=== PATIENT | female | born 1950 | race African-American/Black ===

== ENCOUNTER 2017-03-01 22:39 | Emergency (ER) | payer MEDICARE, MEDICAID ==
[~2017-03-01] VITALS: Ht 167.6 cm; Wt 79.4 kg
[~2017-03-01 22:39] MED LIST: ALBUTEROL SULF8.5 GM INH; AUGMENTIN 875-1 EAC1 ORAL; CARAFATE SUSP UD1 G1 ORAL; DIOVAN40 MG PO; IBUPROFEN600 MG ORAL; MECLIZINE HCL25 MG ORAL; ONDANSETRON ODT4 MG ORAL; PREDNISONE20 MG PO; ROBITUSSIN DM T10 ML PO; ROBITUSSIN DM5 ML PO
[2017-03-01 22:50] VITALS: BP 144/91
--- NOTE | 2017-03-01 23:07 | Emergency Room Report ---
History of Present Illness General Chief Complaint: Dizziness Source: Patient Present Illness HPI This is a 66-year-old female with history hypertension. She presents with chief complaint of dizziness for the last 3 days. His been on off. [place] weak. Denies any fever chills denies any nausea vomiting. She walked in here without any difficulty. She hasn't eaten as much because she was concerned of the food that she ate. She worried about GMO, organic food, corn, soy etc. worse with exertion. Better with rest. Denies any other complaint. No focal deficit. No slurred speech. Similar symptom last year. Allergies: Coded Allergies: No Known Allergies (Unverified , 11/06/12) Patient History Past Medical History: see triage record, old chart reviewed, HTN Past Surgical History: other Pertinent Family History: none Social History: Denies: smoking Now: No Immunizations: other Reviewed Nursing Documentation: PMH: Agreed, PSxH: Agreed Nursing Documentation-PMH Hx Hypertension: Yes Review of Systems Eye: Denies: blurred vision, eye pain ENT: Denies: ear pain, nose congestion, throat swelling Respiratory: Denies: cough, shortness of breath Cardiovascular: Denies: chest pain, palpitations Gastrointestinal: Denies: abdominal pain, diarrhea, nausea, vomiting Musculoskeletal: Denies: back pain, joint pain Skin: Denies: rash Neurological: Reports: dizziness, Denies: headache, numbness Endocrine: Denies: increased thirst, increased urine Hematologic/Lymphatic: Denies: easy bruising All Other Systems: negative except mentioned in HPI Physical Exam Vital Signs Date Time Temp Pulse Resp B/P Pulse Ox O2 Delivery O2 Flow Rate FiO2 03/01/17 22:47 97.9 81 16 144/91 96 Room Air vitals unremarkable Sp02 EP Interpretation: reviewed, normal General Appearance: well appearing, no apparent distress, alert Head: normocephalic, atraumatic Eyes: bilateral eye EOMI, bilateral eye PERRL ENT: hearing grossly normal, normal pharynx Neck: full range of motion, supple, no meningismus Respiratory: chest non-tender, lungs clear, normal breath sounds Cardiovascular #1: regular rate, rhythm, no murmur Gastrointestinal: normal bowel sounds, non tender, no mass, no organomegaly, no bruit, non-distended Musculoskeletal: back normal, gait/station normal, normal range of motion Psychiatric: mood/affect normal Skin: warm/dry Medical Decision Making Diagnostic Impression: Primary Impression: Dizziness Additional Impression: UTI (urinary tract infection) Qualified Codes: N30.00 - Acute cystitis without hematuria ER Course Patient with dizziness. This may be secondary to dehydration. She's otherwise stable. She is walking without difficulty. May have a mild urinary tract infection. We'll go ahead and treat. No evidence of renal failure, sepsis, pneumonia, ACS to name a few. Better now. Lab Results Impression labs normal Last Vital Signs Date Time Temp Pulse Resp B/P Pulse Ox O2 Delivery O2 Flow Rate FiO2 03/01/17 22:47 97.9 81 16 144/91 96 Room Air Status: improved Disposition: HOME, SELF-CARE Condition: Stable Scripts Nitrofurantoin Monohyd/M-Cryst (Nitrofurantoin Hamilton-Mcr 100 mg) 100 Mg Capsule 100 MG ORAL Q12H, #14 CAP Prov: RADHA ARZOLA M.D. 03/02/17 Referrals: NON PHYSICIAN (PCP) Patient Instructions: Dizziness Additional Instructions: Followup with your DrMartin in 7 days. Eat and drink normally. Return if worse. RADHA ARZOLA M.D. Mar 01, 2017 23:07
[2017-03-01 23:30] LABS: BASOPHILS % (AUTO) 1.5 % (0.0-2.0); EOSINOPHILS % (AUTO) 0.6 % (0.0-3.0); LYMPHOCYTES % (AUTO) 44.5 % (20.0-45.0); MEAN CORPUSCULAR HEMOGLOBIN 30.3 PG (27.0-31.0); MEAN CORPUSCULAR HGB CONC 33.4 G/DL (32.0-36.0); MEAN CORPUSCULAR VOLUME 91 FL (80-99); MEAN PLATELET VOLUME 5.7 FL (6.5-10.1); MONOCYTES % (AUTO) 6.3 % (1.0-10.0); NEUTROPHILS % (AUTO) 47.1 % (45.0-75.0); PLATELET COUNT 274 K/UL (150-450); RED BLOOD COUNT 4.55 M/UL (4.20-5.40); RED CELL DISTRIBUTION WIDTH 12.2 % (11.6-14.8); WHITE BLOOD COUNT 7.6 K/UL (4.8-10.8)
[2017-03-01 23:32] LABS: APPEARANCE,URINE CLEAR; KETONES,URINE 2+ (NEGATIVE); LEUKOCYTE ESTERASE ,URINE 2+ (NEGATIVE); NITRITE,URINE NEGATIVE (NEGATIVE); PH,URINE 6 (4.5-8.0); PROTEIN,URINE NEGATIVE (NEGATIVE); UROBILINOGEN,URINE NORMAL MG/DL (0.0-1.0)
[2017-03-01 23:44] LABS: TROPONIN I < 0.30 ng/mL (<=0.30)
[2017-03-01 23:46] LABS: ANION GAP 15 (5-15); CALCIUM 9.9 mg/dL (8.6-10.2); CARBON DIOXIDE 27 mEQ/L (20-30); CHLORIDE 97 mEQ/L (98-107); CREATININE 0.9 mg/dL (0.5-0.9); GLOMERULAR FILTRATION RATE > 60 mL/min (>60); HEMOLYSIS 10; POTASSIUM 3.8 mEQ/L (3.4-4.9); SODIUM 139 mEQ/L (135-145)
[2017-03-01 23:50] LABS: BACTERIA,URINE OCCASIONAL /HPF; RBC,URINE 0-2 /HPF (0 - 2); SQUAMOUS EPITHELIAL CELL,UR OCCASIONAL /LPF (NONE/OCC)
[2017-03-02] MEDS ORDERED: MACROBID100 MG ORAL (00:18)
[2017-03-02 00:37] VITALS: BP 139/89
== END 2017-03-02 00:37 | disposition home or self-care (01) ==
LOC: EMR 23:00
DX: R42 Dizziness and giddiness (principal); N39.0 Urinary tract infection, site not specified; E86.0 Dehydration
CPT/HCPCS: 36415; 80048; 81001; 84484; 85025; 96360

== ENCOUNTER 2017-03-15 11:29 | Emergency (ER) | payer MEDICARE, MEDICAID ==
[~2017-03-15] VITALS: Ht 167.6 cm; Wt 79.8 kg
[~2017-03-15 11:29] MED LIST changes: +MACROBID100 MG ORAL
[2017-03-15 12:15] LABS: ABG ALLEN TEST POSITIVE; ABG BASE EXCESS 3.2
[2017-03-15 12:17] VITALS: BP 162/99
--- NOTE | 2017-03-15 12:56 | Emergency Room Report ---
History of Present Illness General Chief Complaint: Dyspnea/Respdistress Source: Patient Present Illness HPI 67YOF walk-in with ?exposure to carbon monoxide for "long time" from leaky stove. States faulty stove was recently removed. Had symptoms of dizziness, sleepiness when at home. States "I always just wanted to sleep." Denies chest pain, SOB, URI symptoms, fever/chills. Denies headache. Denies COPD, asthma history. Allergies: Coded Allergies: No Known Allergies (Unverified , 11/06/12) Patient History Past Medical History: none Past Surgical History: none Pertinent Family History: none Social History: Denies: alcohol use, drug use, smoking Now: No Immunizations: UTD Reviewed Nursing Documentation: PMH: Agreed, PSxH: Agreed Nursing Documentation-PMH Hx Hypertension: Yes Review of Systems All Other Systems: negative except mentioned in HPI Physical Exam Vital Signs Date Time Temp Pulse Resp B/P Pulse Ox O2 Delivery O2 Flow Rate FiO2 03/15/17 11:33 98.1 83 15 146/90 97 Room Air Sp02 EP Interpretation: reviewed, normal General Appearance: normal inspection, well appearing, no apparent distress, alert, GCS 15, non-toxic Head: normocephalic, atraumatic Eyes: bilateral eye EOMI, bilateral eye PERRL ENT: normal ENT inspection, hearing grossly normal, normal voice Neck: normal inspection, full range of motion, supple, no bony tend Respiratory: normal inspection, lungs clear, normal breath sounds, no respiratory distress, no retraction, no wheezing Cardiovascular #1: regular rate, rhythm, no edema Gastrointestinal: normal inspection, normal bowel sounds, non tender, soft, no guarding, no hernia Genitourinary: no CVA tenderness Musculoskeletal: normal inspection, back normal, normal range of motion, Carola' s Sign negative Neurologic: normal inspection, alert, oriented x3, responsive, chlorinator operator III-XII nml as tested, motor strength/tone normal, speech normal Psychiatric: normal inspection, judgement/insight normal, mood/affect normal Skin: normal inspection, normal color, no rash Lymphatic: normal inspection, no adenopathy Medical Decision Making Diagnostic Impression: Primary Impression: Carbon monoxide exposure ER Course CarboxyHb level 0.3 Patient repeatedly demanding an albuterol tx. States "I got this last 2x I was here and it made me feel better." But denies asthma, COPD history. Non smoker. Lungs are CTAB. No wheezing. Was given albuterol as patient adamant that "it helps me feel better." DC home Last Vital Signs Date Time Temp Pulse Resp B/P Pulse Ox O2 Delivery O2 Flow Rate FiO2 03/15/17 12:17 98.0 78 16 162/99 99 Room Air Status: improved Disposition: HOME, SELF-CARE Condition: Improved Patient Instructions: Carboxyhemoglobin (COHb) Test Additional Instructions: - Your carbon monoxide blood test was normal - Follow up with your primary care doctor as needed RAFAELA BOYLE M.D. Mar 15, 2017 12:56
[2017-03-15] MEDS ORDERED: Albuterol ud Inhalation HHN ONE (13:00)
[2017-03-15 13:17] VITALS: BP 156/82
== END 2017-03-15 13:19 | disposition home or self-care (01) ==
LOC: EMR 12:01
DX: T58.11XA Toxic effect of carbon monoxide from utility gas, accidental (unintentional), initial encounter (principal); Y92.019 Unspecified place in single-family (private) house as the place of occurrence of the external cause; I10 Essential (primary) hypertension
CPT/HCPCS: 36600; 82803; 94640; 99283

== ENCOUNTER 2017-03-18 14:23 | Emergency (ER) | payer MEDICARE, MEDICAID ==
[~2017-03-18] VITALS: Ht 167.6 cm; Wt 79.8 kg
[2017-03-18 14:40] VITALS: BP 143/86
--- NOTE | 2017-03-18 15:30 | Emergency Room Report ---
History of Present Illness General Chief Complaint: Dizziness Source: Patient, Medical Record Present Illness HPI 67-year-old female presents emergency department complaining of weakness, intermittent dizziness and feeling dehydrated. Patient denies past medical history however she states that diabetes does run in her family. Patient states she's been evaluated here in the emergency department recently for her symptoms and that she usually responds well to IV. She states she followed up with her primary care doctor who stated she was healthy. Patient denies nausea , vomiting, fevers, constipation, diarrhea, chills, abdominal pain, rashes, swelling in the lower extremities. Denies CP, Palpitations, LOC, AMS, dizziness , Changes in Vision, Sensation, paresthesias, or a sudden severe headache. Allergies: Coded Allergies: No Known Allergies (Unverified , 11/06/12) Patient History Past Medical History: see triage record Past Surgical History: none Pertinent Family History: none Now: No Reviewed Nursing Documentation: PMH: Agreed, PSxH: Agreed Nursing Documentation-PMH Past Medical History: No History, Except For Hx Hypertension: Yes Review of Systems All Other Systems: negative except mentioned in HPI Physical Exam Vital Signs Date Time Temp Pulse Resp B/P Pulse Ox O2 Delivery O2 Flow Rate FiO2 03/18/17 14:28 98.1 86 18 143/86 97 Room Air Sp02 EP Interpretation: reviewed, normal General Appearance: no apparent distress, alert, GCS 15, non-toxic Head: normocephalic, atraumatic Eyes: bilateral eye PERRL, bilateral eye normal inspection ENT: hearing grossly normal, normal pharynx, no angioedema, normal voice Neck: full range of motion, no meningismus, no bony tend, supple/symm/no masses Respiratory: chest non-tender, lungs clear, normal breath sounds, speaking full sentences Cardiovascular #1: regular rate, rhythm, no edema Gastrointestinal: normal bowel sounds, non tender, soft, no guarding, no rebound Rectal: deferred Genitourinary: normal inspection, no CVA tenderness Musculoskeletal: back normal, gait/station normal, normal range of motion, non- tender Neurologic: alert, oriented x3, responsive, motor strength/tone normal, sensory intact, cerebellar normal, normal gait, speech normal, no pronator Psychiatric: judgement/insight normal, memory normal, mood/affect normal Skin: normal color, no rash, warm/dry, well hydrated Lymphatic: no adenopathy Medical Decision Making PA Attestation Dr. Okeefe is my supervising Physician whom patient management has been discussed with. Diagnostic Impression: Primary Impression: Dizziness of unknown cause ER Course 67-year-old female presents emergency department complaining of weakness, intermittent dizziness and feeling dehydrated. Patient denies past medical history however she states that diabetes does run in her family. Patient states she's been evaluated here in the emergency department recently for her symptoms and that she usually responds well to IV. She states she followed up with her primary care doctor who stated she was healthy. Patient denies nausea , vomiting, fevers, constipation, diarrhea, chills, abdominal pain, rashes, swelling in the lower extremities. Denies vertigo, describes dizziness as intermittent light headedness. Denies CP, Palpitations, LOC, AMS, dizziness, Changes in Vision, Sensation, paresthesias, or a sudden severe headache. Ddx considered but are not limited to Mnire's, BPPV, labyrinthitis, cerebellar stroke, hypovolemia, cardiac cause. Vital signs: are WNL, pt. is afebrile H&PE are most consistent with : intermittent dizziness-recurrent. ORDERS: -CBC: Unremarkable -CMP: Unremarkable -UA: Unremarkable -Troponins, CK-MB, CK- all negative -EK BPM NSR, no acute ST changes interpreted by Dr. Okeefe ED INTERVENTIONS: - 500cc NS bolus DISCHARGE: At this time pt. is stable for d/c to home. Will provide printed patient care instructions, and any necessary prescriptions. Care plan and follow up instructions have been discussed with the patient prior to discharge. Labs Test 03/18/17 15:37 03/18/17 16:03 White Blood Count 7.4 K/UL (4.8-10.8) Red Blood Count 3.93 M/UL (4.20-5.40) Hemoglobin 12.3 G/DL (12.0-16.0) Hematocrit 36.0 % (37.0-47.0) Mean Corpuscular Volume 92 FL (80-99) Mean Corpuscular Hemoglobin 31.3 PG (27.0-31.0) Mean Corpuscular Hemoglobin Concent 34.2 G/DL (32.0-36.0) Red Cell Distribution Width 12.6 % (11.6-14.8) Platelet Count 277 K/UL (150-450) Mean Platelet Volume 5.7 FL (6.5-10.1) Neutrophils (%) (Auto) 60.8 % (45.0-75.0) Lymphocytes (%) (Auto) 32.2 % (20.0-45.0) Monocytes (%) (Auto) 4.9 % (1.0-10.0) Eosinophils (%) (Auto) 0.7 % (0.0-3.0) Basophils (%) (Auto) 1.5 % (0.0-2.0) Urine Color Pale yellow Urine Appearance Clear Urine pH 6 (4.5-8.0) Urine Specific [place] 1.005 (1.005-1.035) Urine Protein Negative (NEGATIVE) Urine Glucose (UA) Negative (NEGATIVE) Urine Ketones Negative (NEGATIVE) Urine Occult Blood Negative (NEGATIVE) Urine Nitrite Negative (NEGATIVE) Urine Bilirubin Negative (NEGATIVE) Urine Urobilinogen Normal MG/DL (0.0-1.0) Urine Leukocyte Esterase Negative (NEGATIVE) Sodium Level 139 mEQ/L (135-145) Potassium Level 4.9 mEQ/L (3.4-4.9) Chloride Level 100 mEQ/L (98-107) Carbon Dioxide Level 23 mEQ/L (20-30) Anion Gap 16 (5-15) Blood Urea Nitrogen 13 mg/dL (7-23) Creatinine 0.9 mg/dL (0.5-0.9) Estimat Glomerular Filtration Rate > 60 mL/min (>60) Glucose Level 83 mg/dL (74-106) Calcium Level 9.1 mg/dL (8.6-10.2) Total Bilirubin 0.3 mg/dL (0.0-1.2) Aspartate Amino Transf (AST/SGOT) 31 U/L (5-40) Alanine Aminotransferase (ALT/SGPT) 9 U/L (3-33) Alkaline Phosphatase 74 U/L (35-104) Total Creatine Kinase 169 U/L (26-140) Creatine Kinase MB < 1.5 ng/mL (< 3.8) Creatine Kinase MB Relative Index Troponin I < 0.30 ng/mL (<=0.30) Total Protein 6.9 g/dL (6.6-8.7) Albumin 3.6 g/dL (3.5-5.2) Globulin 3.3 g/dL Albumin/Globulin Ratio 1.0 (1.0-2.7) EKG Diagnostic Results EP Interpretation: interpreted by Dr. Okeefe Rate: normal Rhythm: NSR ST Segments: no acute changes ASA given to the pt in ED: No PA Scribe Text this interpretation was scribed by PA Last Vital Signs Date Time Temp Pulse Resp B/P Pulse Ox O2 Delivery O2 Flow Rate FiO2 03/18/17 14:40 98.1 18 143/86 97 Room Air 03/18/17 14:28 86 Disposition: HOME, SELF-CARE Condition: Stable Patient Instructions: Dizziness Additional Instructions: Take medications as directed. Follow up with PCP in 3-5 days, recommend Neurologist evaluation for your recurrent symptoms. Return sooner to ED if new symptoms occur, or current symptoms become worse. - Please note that this Emergency Department Report was dictated using [id number] worker technology software, occasionally this can lead to erroneous entry secondary to interpretation by the dictation equipment. Rosa Hardwick Mar 18, 2017 15:30
[2017-03-18 16:18] LABS: BASOPHILS % (AUTO) 1.5 % (0.0-2.0); EOSINOPHILS % (AUTO) 0.7 % (0.0-3.0); LYMPHOCYTES % (AUTO) 32.2 % (20.0-45.0); MEAN CORPUSCULAR HEMOGLOBIN 31.3 PG (27.0-31.0); MEAN CORPUSCULAR HGB CONC 34.2 G/DL (32.0-36.0); MEAN CORPUSCULAR VOLUME 92 FL (80-99); MEAN PLATELET VOLUME 5.7 FL (6.5-10.1); MONOCYTES % (AUTO) 4.9 % (1.0-10.0); NEUTROPHILS % (AUTO) 60.8 % (45.0-75.0); PLATELET COUNT 277 K/UL (150-450); RED BLOOD COUNT 3.93 M/UL (4.20-5.40); RED CELL DISTRIBUTION WIDTH 12.6 % (11.6-14.8); WHITE BLOOD COUNT 7.4 K/UL (4.8-10.8)
[2017-03-18 16:23] LABS: APPEARANCE,URINE CLEAR; KETONES,URINE NEGATIVE (NEGATIVE); LEUKOCYTE ESTERASE ,URINE NEGATIVE (NEGATIVE); NITRITE,URINE NEGATIVE (NEGATIVE); PH,URINE 6 (4.5-8.0); PROTEIN,URINE NEGATIVE (NEGATIVE); UROBILINOGEN,URINE NORMAL MG/DL (0.0-1.0)
[2017-03-18 16:39] LABS: TROPONIN I < 0.30 ng/mL (<=0.30)
[2017-03-18 16:43] LABS: ALANINE AMINOTRANSFERASE 9 U/L (3-33); ANION GAP 16 (5-15); ASPARTATE AMINO TRANSFERASE 31 U/L (5-40); CALCIUM 9.1 mg/dL (8.6-10.2); CARBON DIOXIDE 23 mEQ/L (20-30); CHLORIDE 100 mEQ/L (98-107); CREATININE 0.9 mg/dL (0.5-0.9); GLOMERULAR FILTRATION RATE > 60 mL/min (>60); HEMOLYSIS 267; POTASSIUM 4.9 mEQ/L (3.4-4.9); SODIUM 139 mEQ/L (135-145); TOTAL PROTEIN 6.9 g/dL (6.6-8.7)
[2017-03-18 16:53] LABS: CKMB < 1.5 ng/mL (< 3.8)
[2017-03-18 18:07] VITALS: BP 158/90
--- NOTE | 2017-03-19 20:06 | Cardiology Report ---
APPROVED REPORT EKG Measurement Heart [id number] Normal sinus rhythm Minimal voltage criteria for LVH, may be normal variant Borderline ECG
== END 2017-03-18 17:50 | disposition home or self-care (01) ==
LOC: EMR 15:14
DX: R42 Dizziness and giddiness (principal); I10 Essential (primary) hypertension
CPT/HCPCS: 36415; 80053; 81003; 82550; 82553; 84484; 85025; 93005; 96374

== ENCOUNTER 2017-07-26 09:14 | Emergency (ER) | payer MEDICARE, MEDICAID ==
[~2017-07-26] VITALS: Ht 167.6 cm; Wt 77.1 kg
[2017-07-26] MEDS ORDERED: Lidocaine 2% Visc 15ml soln ORAL ONE (09:45)
[2017-07-26] MEDS ORDERED: Dicyclomine HCl 10mg/5ml oral soln ORAL ONE (09:45)
[2017-07-26] MEDS ORDERED: Mylanta II UD 30ml ORAL ONE (09:45)
[2017-07-26 10:23] VITALS: BP 168/90
[2017-07-26 10:24] LABS: APPEARANCE,URINE CLEAR; EOSINOPHILS % (AUTO) 0.7 % (0.0-3.0); KETONES,URINE NEGATIVE (NEGATIVE); LEUKOCYTE ESTERASE ,URINE 3+ (NEGATIVE); LYMPHOCYTES % (AUTO) 42.6 % (20.0-45.0); MEAN CORPUSCULAR HGB CONC 32.2 G/DL (32.0-36.0); MEAN CORPUSCULAR VOLUME 93 FL (80-99); MONOCYTES % (AUTO) 5.3 % (1.0-10.0); NEUTROPHILS % (AUTO) 50.4 % (45.0-75.0); NITRITE,URINE NEGATIVE (NEGATIVE); PH,URINE 5 (4.5-8.0); PLATELET COUNT 298 K/UL (150-450); PROTEIN,URINE NEGATIVE (NEGATIVE); RED BLOOD COUNT 4.67 M/UL (4.20-5.40); RED CELL DISTRIBUTION WIDTH 12.1 % (11.6-14.8); UROBILINOGEN,URINE NORMAL MG/DL (0.0-1.0); WHITE BLOOD COUNT 5.2 K/UL (4.8-10.8)
[2017-07-26 10:43] LABS: ALANINE AMINOTRANSFERASE 17 U/L (12-78); ALBUMIN/GLOBULIN RATIO 0.9 (1.0-2.7); ANION GAP 5 mmol/L (5-15); ASPARTATE AMINO TRANSFERASE 22 U/L (15-37); CARBON DIOXIDE 30 MMOL/L (21-32); CHLORIDE 102 MMOL/L (98-107); GLOMERULAR FILTRATION RATE > 60 mL/min (>60); LIPASE 109 U/L (73-393); POTASSIUM 3.8 MMOL/L (3.5-5.1); SODIUM 137 MMOL/L (136-145); TOTAL PROTEIN 7.9 G/DL (6.4-8.2)
[2017-07-26 10:44] LABS: BACTERIA,URINE FEW /HPF; RBC,URINE 0-2 /HPF (0 - 2); SQUAMOUS EPITHELIAL CELL,UR FEW /LPF (NONE/OCC)
[2017-07-26] MEDS ORDERED: CLARITHROMYCIN500 MG PO (10:56)
[2017-07-26] MEDS ORDERED: OMEPRAZOLE40 M1 ORAL (10:56)
[2017-07-26] MEDS ORDERED: AMOXICILLIN500 MG ORAL (10:56)
[2017-07-26 11:23] VITALS: BP 162/88
--- NOTE | 2017-07-26 11:39 | Emergency Room Report ---
History of Present Illness General Chief Complaint: Abdominal Pain Source: Patient Present Illness HPI 67-year-old female presents ED complaining of abdominal pain x4 days. Notes history of acid reflux and H. pylori. Patient states pain is burning, 6/10, nonradiating. Denies nausea or vomiting. Denies fevers or chills. Denies chest pain shortness of breath. No other aggravating relieving factors. Denies any other associated symptoms Allergies: Coded Allergies: PEANUT (Verified Allergy, Unknown, 07/26/17) Uncoded Allergies: NUTS (Allergy, Unknown, 07/26/17) Patient History Past Medical History: HTN, ulcer, GERD Past Surgical History: none Pertinent Family History: none Social History: Denies: smoking, alcohol use, drug use Last Menstrual Period: unknown Now: No Immunizations: UTD Reviewed Nursing Documentation: PMH: Agreed, PSxH: Agreed Nursing Documentation-PMH Past Medical History: No History, Except For Hx Hypertension: Yes Hx Gastrointestinal Problems: Yes - Hx of ulcer, H.pylori Review of Systems All Other Systems: negative except mentioned in HPI Physical Exam Vital Signs Date Time Temp Pulse Resp B/P (MAP) Pulse Ox O2 Delivery O2 Flow Rate FiO2 07/26/17 09:23 97.5 70 16 173/95 99 Room Air Sp02 EP Interpretation: reviewed, normal General Appearance: no apparent distress, alert, GCS 15, non-toxic Head: normocephalic, atraumatic Eyes: bilateral eye normal inspection, bilateral eye PERRL ENT: hearing grossly normal, normal pharynx, no angioedema, normal voice Neck: full range of motion, supple/symm/no masses Respiratory: chest non-tender, lungs clear, normal breath sounds, speaking full sentences Cardiovascular #1: regular rate, rhythm, no edema Cardiovascular #2: 2+ carotid (R), 2+ carotid (L), 2+ radial (R), 2+ radial (L) , 2+ dorsalis pedis (R), 2+ dorsalis pedis (L) Gastrointestinal: normal bowel sounds, soft, non-distended, no guarding, no rebound, tenderness - epigastric Rectal: deferred Genitourinary: normal inspection, no CVA tenderness Musculoskeletal: back normal, gait/station normal, normal range of motion, non- tender Neurologic: alert, oriented x3, responsive, motor strength/tone normal, sensory intact, speech normal Psychiatric: judgement/insight normal, memory normal, mood/affect normal, no suicidal/homicidal ideation Reflexes: 3+ bicep (R), 3+ bicep (L), 3+ tricep (R), 3+ tricep (L), 3+ knee (R) , 3+ knee (L) Skin: normal color, no rash, warm/dry, well hydrated Lymphatic: no adenopathy Medical Decision Making Diagnostic Impression: Primary Impression: Gastritis Qualified Codes: K29.00 - Acute gastritis without bleeding ER Course Hospital Course 67-year-old F presents to ED with epigastric pain differential diagnosis: gastritis, SBO, cholecystits Clinical course Patient placed on stretcher. On electronic device monitor. After initial history and physical I ordered labs, IV fluids, pepcid and Gi cocktail Labs - no leukocytosis, no electrolyte abnormalities, LFTs normal Upon reassessment, patient states pain has improved. findings consistent with gastritis Given prior history of H. pylori we will treat empirically prescribed clarithromycin and amoxicillin I feel this is a highly complex case requiring extensive working including EKG/ Rhythm strip, Xray/CT/US, Blood/urine lab work, repeat exams while in ED, and administration of strong opiates/narcotics for pain control, admission to hospital or close patient follow up. Diagnosis - gastritis Stable and discharged to home with prescriptions for omeprazole, clarithromycin , amoxicillin. Followup with PMD. Return to ED if symptoms recur or worsen Labs Test 07/26/17 09:50 White Blood Count 5.2 K/UL (4.8-10.8) Red Blood Count 4.67 M/UL (4.20-5.40) Hemoglobin 14.0 G/DL (12.0-16.0) Hematocrit 43.5 % (37.0-47.0) Mean Corpuscular Volume 93 FL (80-99) Mean Corpuscular Hemoglobin 30.0 PG (27.0-31.0) Mean Corpuscular Hemoglobin Concent 32.2 G/DL (32.0-36.0) Red Cell Distribution Width 12.1 % (11.6-14.8) Platelet Count 298 K/UL (150-450) Mean Platelet Volume 6.0 FL (6.5-10.1) Neutrophils (%) (Auto) 50.4 % (45.0-75.0) Lymphocytes (%) (Auto) 42.6 % (20.0-45.0) Monocytes (%) (Auto) 5.3 % (1.0-10.0) Eosinophils (%) (Auto) 0.7 % (0.0-3.0) Basophils (%) (Auto) 1.0 % (0.0-2.0) Urine Color Yellow Urine Appearance Clear Urine pH 5 (4.5-8.0) Urine Specific [place] 1.020 (1.005-1.035) Urine Protein Negative (NEGATIVE) Urine Glucose (UA) Negative (NEGATIVE) Urine Ketones Negative (NEGATIVE) Urine Occult Blood Negative (NEGATIVE) Urine Nitrite Negative (NEGATIVE) Urine Bilirubin Negative (NEGATIVE) Urine Urobilinogen Normal MG/DL (0.0-1.0) Urine Leukocyte Esterase 3+ (NEGATIVE) Urine RBC 0-2 /HPF (0 - 2) Urine WBC 5-10 /HPF (0 - 2) Urine Squamous Epithelial Cells Few /LPF (NONE/OCC) Urine Bacteria Few /HPF (NONE) Sodium Level 137 MMOL/L (136-145) Potassium Level 3.8 MMOL/L (3.5-5.1) Chloride Level 102 MMOL/L (98-107) Carbon Dioxide Level 30 MMOL/L (21-32) Anion Gap 5 mmol/L (5-15) Blood Urea Nitrogen 13 mg/dL (7-18) Creatinine 1.0 MG/DL (0.55-1.30) Estimat Glomerular Filtration Rate > 60 mL/min (>60) Glucose Level 83 MG/DL (74-106) Calcium Level 10.0 MG/DL (8.5-10.1) Total Bilirubin 0.4 MG/DL (0.2-1.0) Aspartate Amino Transf (AST/SGOT) 22 U/L (15-37) Alanine Aminotransferase (ALT/SGPT) 17 U/L (12-78) Alkaline Phosphatase 116 U/L (46-116) Troponin I 0.027 ng/mL (0.000-0.056) Total Protein 7.9 G/DL (6.4-8.2) Albumin 3.8 G/DL (3.4-5.0) Globulin 4.1 g/dL Albumin/Globulin Ratio 0.9 (1.0-2.7) Lipase 109 U/L (73-393) Last Vital Signs Date Time Temp Pulse Resp B/P (MAP) Pulse Ox O2 Delivery O2 Flow Rate FiO2 07/26/17 11:23 97.5 79 16 162/88 99 Room Air Status: improved Disposition: HOME, SELF-CARE Condition: Stable Scripts Omeprazole (OMEPRAZOLE) 40 Mg Capsule. 40 MG ORAL DAILY, #10 CAP Prov: DAX SIMMONS M.D. 07/26/17 Amoxicillin* (AMOXIL*) 500 Mg Capsule 500 MG ORAL THREE TIMES A DAY for 10 Days, CAP Prov: DAX SIMMONS M.D. 07/26/17 Clarithromycin* (CLARITHROMYCIN*) 500 Mg Tablet 500 MG PO Q12HR for 10 Days, TAB Prov: DAX SIMMONS M.D. 07/26/17 Patient Instructions: Gastritis, Adult DAX SIMMONS M.D. Jul 26, 2017 11:39
[2017-09-15] MEDS ORDERED: DIOVAN80 MG ORAL (13:19)
== END 2017-07-26 11:25 | disposition home or self-care (01) ==
LOC: EMR 10:19
DX: K29.70 Gastritis, unspecified, without bleeding (principal); I10 Essential (primary) hypertension; Z91.018 Allergy to other foods; Z91.010 Allergy to peanuts; Z87.19 Personal history of other diseases of the digestive system
CPT/HCPCS: 36415; 80053; 81003; 83690; 84484; 85025; 96360; 99284; J2405; S0028

== ENCOUNTER → 2017-09-15 | Emergency (ER) | payer MEDICARE, MEDICAID ==
[~2017-09-15] VITALS: Ht 167.6 cm; Wt 70.3 kg
[~2017-09-15] MED LIST changes: +AMOXICILLIN500 MG ORAL; +CLARITHROMYCIN500 MG PO; +DIOVAN80 MG ORAL; +OMEPRAZOLE40 M1 ORAL
[2017-09-15 14:57] LABS: BASOPHILS % (AUTO) 1.4 % (0.0-2.0); EOSINOPHILS % (AUTO) 0.9 % (0.0-3.0); LYMPHOCYTES % (AUTO) 43.2 % (20.0-45.0); MEAN CORPUSCULAR HEMOGLOBIN 30.2 PG (27.0-31.0); MEAN CORPUSCULAR HGB CONC 32.8 G/DL (32.0-36.0); MEAN CORPUSCULAR VOLUME 92 FL (80-99); NEUTROPHILS % (AUTO) 48.6 % (45.0-75.0); PLATELET COUNT 329 K/UL (150-450); RED BLOOD COUNT 4.37 M/UL (4.20-5.40); RED CELL DISTRIBUTION WIDTH 12.4 % (11.6-14.8); WHITE BLOOD COUNT 6.1 K/UL (4.8-10.8)
[2017-09-15 15:06] LABS: ANION GAP 7 mmol/L (5-15); CALCIUM 8.8 MG/DL (8.5-10.1); CARBON DIOXIDE 29 MMOL/L (21-32); CHLORIDE 103 MMOL/L (98-107); CREATININE 0.9 MG/DL (0.55-1.30); GLOMERULAR FILTRATION RATE > 60 mL/min (>60); POTASSIUM 3.9 MMOL/L (3.5-5.1); SODIUM 139 MMOL/L (136-145)
[2017-09-15 15:11] LABS: ALANINE AMINOTRANSFERASE 15 U/L (12-78); ALBUMIN/GLOBULIN RATIO 0.8 (1.0-2.7); ASPARTATE AMINO TRANSFERASE 23 U/L (15-37); LIPASE 114 U/L (73-393); TOTAL PROTEIN 8.1 G/DL (6.4-8.2)
[2017-09-15 15:58] VITALS: BP 180/100
--- NOTE | 2017-09-15 22:01 | Emergency Room Report ---
History of Present Illness General Chief Complaint: General Complaint Source: Patient, Medical Record Present Illness HPI The patient is a 67-year-old female transient presenting possible dehydration. She states that she has been very active recently and has not been able to take in fluids. She states that she frequently becomes dehydrated and needs IV fluids. She is feeling fatigued. She denies other symptoms including chest pain, shortness of breath, vomiting, dizziness, blurred vision. She does admit to a bump she noticed on her right eye which was tender. Pain has resolved now. Has been present since yesterday. She denies any changes in vision Allergies: Coded Allergies: PEANUT (Verified Allergy, Unknown, 07/26/17) Uncoded Allergies: NUTS (Allergy, Unknown, 07/26/17) Patient History Past Medical History: see triage record Pertinent Family History: none Last Menstrual Period: Hysterectomy 1989. Reviewed Nursing Documentation: PMH: Agreed, PSxH: Agreed Nursing Documentation-PMH Hx Hypertension: Yes Hx Gastrointestinal Problems: Yes - Hx of ulcer, H.pylori, Hysterectomy 1989. Review of Systems All Other Systems: negative except mentioned in HPI Physical Exam Vital Signs Date Time Temp Pulse Resp B/P (MAP) Pulse Ox O2 Delivery O2 Flow Rate FiO2 09/15/17 13:14 98.2 80 17 190/97 98 Room Air Sp02 EP Interpretation: reviewed, normal General Appearance: no apparent distress, alert, GCS 15, non-toxic Head: normocephalic, atraumatic Eyes: right eye other - papule R lower eyelid , bilateral eye normal inspection , bilateral eye PERRL ENT: hearing grossly normal, normal pharynx, no angioedema, normal voice Neck: full range of motion, supple/symm/no masses Respiratory: chest non-tender, lungs clear, normal breath sounds, speaking full sentences Cardiovascular #1: regular rate, rhythm, no edema Musculoskeletal: back normal, gait/station normal, normal range of motion, non- tender Neurologic: alert, oriented x3, responsive, motor strength/tone normal, sensory intact, speech normal Psychiatric: judgement/insight normal, memory normal, mood/affect normal, no suicidal/homicidal ideation Skin: normal color, no rash, warm/dry, well hydrated Medical Decision Making PA Attestation Dr. Coleman is my supervising physician. Patient management was discussed with my supervising physician Diagnostic Impression: Primary Impression: Dehydration, mild Additional Impression: Stye external Qualified Codes: H00.012 - Hordeolum externum right lower eyelid ER Course The patient is a 67-year-old female transient presenting possible dehydration and stye Differential diagnoses considered but not limited to dehydration, electrolyte imbalance, CHELA, stye, blepharitis, among others PE: No apparent distress. A&Ox4 PERRL. EOMI. R lower eyelid stye. Normal mentation. RRR. No MRG Lungs CTA bilat Abdomen: Normal appearance. Non distended. No ecchymosis. Normal BS. Non TTP. No McBurney point tenderness. No guarding. Skin is warm and dry, no rashes. Bloodwork unremarkable The patient is given IV fluids and is feeling better. She is discharged home and given instructions for stye including warm compress. ER precautions are given Laboratory Tests Test 09/15/17 14:25 White Blood Count 6.1 K/UL (4.8-10.8) Red Blood Count 4.37 M/UL (4.20-5.40) Hemoglobin 13.2 G/DL (12.0-16.0) Hematocrit 40.2 % (37.0-47.0) Mean Corpuscular Volume 92 FL (80-99) Mean Corpuscular Hemoglobin 30.2 PG (27.0-31.0) Mean Corpuscular Hemoglobin Concent 32.8 G/DL (32.0-36.0) Red Cell Distribution Width 12.4 % (11.6-14.8) Platelet Count 329 K/UL (150-450) Mean Platelet Volume 6.0 FL (6.5-10.1) L Neutrophils (%) (Auto) 48.6 % (45.0-75.0) Lymphocytes (%) (Auto) 43.2 % (20.0-45.0) Monocytes (%) (Auto) 6.0 % (1.0-10.0) Eosinophils (%) (Auto) 0.9 % (0.0-3.0) Basophils (%) (Auto) 1.4 % (0.0-2.0) Sodium Level 139 MMOL/L (136-145) Potassium Level 3.9 MMOL/L (3.5-5.1) Chloride Level 103 MMOL/L (98-107) Carbon Dioxide Level 29 MMOL/L (21-32) Anion Gap 7 mmol/L (5-15) Blood Urea Nitrogen 14 mg/dL (7-18) Creatinine 0.9 MG/DL (0.55-1.30) Estimate Glomerular Filtration Rate > 60 mL/min (>60) Glucose Level 91 MG/DL (74-106) Calcium Level 8.8 MG/DL (8.5-10.1) Total Bilirubin 0.3 MG/DL (0.2-1.0) Aspartate Amino Transferase (AST) 23 U/L (15-37) Alanine Aminotransferase (ALT) 15 U/L (12-78) Alkaline Phosphatase 93 U/L (46-116) Total Protein 8.1 G/DL (6.4-8.2) Albumin 3.6 G/DL (3.4-5.0) Globulin 4.5 g/dL Albumin/Globulin Ratio 0.8 (1.0-2.7) L Lipase 114 U/L (73-393) Lab Results Impression Unremarkable Last Vital Signs Date Time Temp Pulse Resp B/P (MAP) Pulse Ox O2 Delivery O2 Flow Rate FiO2 09/15/17 15:58 98.0 68 16 180/100 95 Room Air Status: improved Disposition: HOME, SELF-CARE Condition: Improved Patient Instructions: Stye, Dehydration, Adult Additional Instructions: I discussed my findings with the patient. All questions and concerns have been answered. Treatment and medication compliance have been addressed. I advised the patient that they need to follow up with PMD in 3-5 days. Return to ED if symptoms worsen, new symptoms arise, or if needed for any reason. Patient verbalized understanding of discharge instructions. GONZALO KANG Sep 15, 2017 22:01
== END | disposition home or self-care (01) ==
LOC: EMR 14:50
DX: E86.0 Dehydration (principal); H00.012 Hordeolum externum right lower eyelid; I10 Essential (primary) hypertension
CPT/HCPCS: 36415; 80053; 83690; 85025; 96360; 99284

== ENCOUNTER 2017-12-31 08:56 | Emergency (ER) | payer MEDICARE, MEDICAID ==
[~2017-12-31] VITALS: Ht 170.2 cm; Wt 72.6 kg
[2017-12-31] MEDS ORDERED: ADULT WAL-100 MG/5 M ORAL (09:24)
[2017-12-31 09:59] VITALS: BP 158/93
--- NOTE | 2017-12-31 10:14 | Diagnostic Imaging Report ---
Indication: Dyspnea Comparison: 05/04/2013 A single view chest radiograph was obtained. Findings: No definite infiltrate or pulmonary vascular congestion identified. The heart is enlarged. The aorta is mildly enlarged consistent with atherosclerotic vascular disease. The bones are osteopenic. Impression: No acute disease
--- NOTE | 2017-12-31 20:04 | Emergency Room Report ---
History of Present Illness General Chief Complaint: Flu Like Symptoms Present Illness HPI Patient is a 67-year-old female who presented after increased cough and congestion. Patient gradual onset of symptoms. Patient was noted to have prior history of COPD. She reported having worsening congestion she denies any fever. She denies any leg pain or swelling. She had not been having any vomiting. Allergies: Coded Allergies: PEANUT (Verified Allergy, Unknown, 07/26/17) Uncoded Allergies: NUTS (Allergy, Unknown, 07/26/17) Patient History Past Medical History: see triage record Reviewed Nursing Documentation: PMH: Agreed; PSxH: Agreed Nursing Documentation-PMH Hx Hypertension: Yes Hx Gastrointestinal Problems: Yes - Hx of ulcer, H.pylori, Hysterectomy 1989. Review of Systems All Other Systems: negative except mentioned in HPI Physical Exam Vital Signs Date Time Temp Pulse Resp B/P (MAP) Pulse Ox O2 Delivery O2 Flow Rate FiO2 12/31/17 09:09 98.2 73 20 158/93 96 Room Air 98.2 General Appearance: well appearing, no apparent distress, alert, GCS 15 Head: normocephalic, atraumatic ENT: hearing grossly normal, normal voice Neck: full range of motion, supple Respiratory: no respiratory distress, speaking full sentences Cardiovascular #1: normal inspection, normal peripheral pulses, regular rate, rhythm Gastrointestinal: normal inspection, non tender, soft Musculoskeletal: no calf tenderness Neurologic: normal inspection, alert, oriented x3, responsive, digital archivist III-XII nml as tested, motor strength/tone normal, normal gait Psychiatric: mood/affect normal Skin: no rash Medical Decision Making Diagnostic Impression: Primary Impression: Bronchitis ER Course Patient presented for cough. Differential diagnosis included but was not limited to bronchitis, pneumonia, pulmonary embolism, pericarditis, asthma, foreign body. Patient has a benign exam and does not appear to require laboratory testing at this time. Chest x-ray was noted to be negative. Patient was given prescription for cough medications. The patient is advised to follow up with primary care doctor in 1-2 days. Patient is advised to return if any worsening condition or if any changes in status that are concerning. This report is dictated with [employer] kiln operator software which may occasionally lead to discrepancies related to use of this software. Chest X-Ray Diagnostic Results Chest X-Ray Diagnostic Results : Chest X-Ray Ordered: Yes # of Views/Limited/Complete: 1 View Indication: Shortness of Breath EP Interpretation: Yes PA Xray: Interpretation reviewed Interpretation: no consolidation, no effusion, no pneumothorax, no acute cardiopulmonary disease Impression: No acute disease Last Vital Signs Date Time Temp Pulse Resp B/P (MAP) Pulse Ox O2 Delivery O2 Flow Rate FiO2 12/31/17 09:59 98.2 20 158/93 96 Room Air 98.2 12/31/17 09:16 73 Status: improved Disposition: HOME, SELF-CARE Condition: Stable Scripts Guaifenesin* (ADULT WAL-TUSSIN*) 100 Mg/5 Ml Liquid 10 ML ORAL Q4H, #120 ML Prov: Ruben Coleman 12/31/17 Referrals: NOT CHOSEN IPA/MD,REFERRING Patient Instructions: Acute Bronchitis Ruben Coleman Dec 31, 2017 20:04
== END 2017-12-31 09:59 | disposition home or self-care (01) ==
LOC: EMR 09:26
DX: J40 Bronchitis, not specified as acute or chronic (principal); I10 Essential (primary) hypertension; Z90.710 Acquired absence of both cervix and uterus; Z91.010 Allergy to peanuts; Z91.018 Allergy to other foods
CPT/HCPCS: 71045; 99283

== ENCOUNTER 2018-08-18 13:46 | Emergency (ER) | payer MEDICARE, MEDICAID ==
[~2018-08-18] VITALS: Ht 167.6 cm; Wt 77.1 kg
[~2018-08-18 13:46] MED LIST changes: +ADULT WAL-100 MG/5 M ORAL
[2018-08-18] MEDS ORDERED: AMOXICILLIN500 MG ORAL (14:43)
[2018-08-18] MEDS ORDERED: DIPHENHYDRAMINE25 M1 ORAL (14:43)
[2018-08-18 14:52] VITALS: BP 145/82
--- NOTE | 2018-08-18 17:57 | Emergency Room Report ---
History of Present Illness General Chief Complaint: General Complaint Source: Patient Present Illness HPI 68-year-old female presents ED for evaluation. Patient states she notes some scratchiness in her throat. Difficult to swallow 2 days. 8 out of 10, dull, nonradiating. Denies fevers or chills. Denies cough. Denies sick contacts or recent travel. No other aggravating relieving factors. Denies any other associated symptoms Allergies: Coded Allergies: PEANUT (Verified Allergy, Unknown, 07/26/17) Uncoded Allergies: NUTS (Allergy, Unknown, 07/26/17) Patient History Past Medical History: HTN, ulcer, GERD Past Surgical History: none Pertinent Family History: none Social History: Denies: smoking, alcohol use, drug use Now: No Immunizations: UTD Reviewed Nursing Documentation: PMH: Agreed; PSxH: Agreed Nursing Documentation-PMH Past Medical History: No History, Except For Hx Hypertension: Yes Hx Gastrointestinal Problems: Yes - Hx of ulcer, H.pylori, Hysterectomy 1989. Review of Systems All Other Systems: negative except mentioned in HPI Physical Exam Vital Signs Date Time Temp Pulse Resp B/P (MAP) Pulse Ox O2 Delivery O2 Flow Rate FiO2 08/18/18 13:58 98.4 72 18 156/80 98 Room Air Sp02 EP Interpretation: reviewed, normal General Appearance: no apparent distress, alert, GCS 15, non-toxic Head: normocephalic Eyes: bilateral eye normal inspection, bilateral eye PERRL ENT: TMs + canals normal, pharyngeal erythema Neck: normal inspection Respiratory: chest non-tender, lungs clear, normal breath sounds, speaking full sentences Cardiovascular #1: regular rate, rhythm, no edema Gastrointestinal: normal inspection Rectal: deferred Genitourinary: no CVA tenderness Musculoskeletal: normal inspection Neurologic: alert, oriented x3, responsive, motor strength/tone normal, sensory intact, speech normal Psychiatric: normal inspection Skin: normal inspection Lymphatic: normal inspection Medical Decision Making Diagnostic Impression: Primary Impression: Pharyngitis Qualified Codes: J02.9 - Acute pharyngitis, unspecified ER Course Hospital Course 68-year-old female presents to ED complaining of sore throat Differential diagnoses include: URI, pharyngitis, otitis media Clinical course Patient placed on stretcher. After initial history, physical exam reveals a middle aged female in no acute distress. Bilateral TM unremarkable. There is pharyngeal erythema. No lymphadenopathy. Clinical findings consistent with pharyngitis. discussed findings with patient. we will discharge with abx. safe for discharge with close outpatient followup Diagnosis - pharyngitis Stable and discharged home with prescriptions for benedryl, amoxicillin. Instructed to followup with PMD. return to ED if symptoms recur or worsen Last Vital Signs Date Time Temp Pulse Resp B/P (MAP) Pulse Ox O2 Delivery O2 Flow Rate FiO2 08/18/18 14:52 98.4 85 18 145/82 96 Room Air Status: improved Disposition: HOME, SELF-CARE Condition: Stable Scripts Amoxicillin* (AMOXIL*) 500 Mg Capsule 500 MG ORAL THREE TIMES A DAY, #21 CAP Prov: Gagan Herrera MD 08/18/18 Diphenhydramine Hcl* (DIPHENHYDRAMINE HCL*) 25 Mg Capsule 50 MG ORAL QHS PRN for Itching, #10 CAP 0 Refills Prov: Gagan Herrera MD 08/18/18 Referrals: NOT CHOSEN IPA/,REFERRING (PCP) Patient Instructions: Pharyngitis, [id number] Gagan Herrera MD Aug 18, 2018 17:57
== END 2018-08-18 14:52 | disposition home or self-care (01) ==
LOC: EMR 14:26
DX: J02.9 Acute pharyngitis, unspecified (principal); K21.9 Gastro-esophageal reflux disease without esophagitis; Z91.018 Allergy to other foods; Z91.010 Allergy to peanuts
CPT/HCPCS: 99282

== ENCOUNTER 2019-02-08 12:01 | Emergency (ER) | payer MEDICARE, MEDICAID ==
[~2019-02-08] VITALS: Ht 172.7 cm; Wt 78.0 kg
[~2019-02-08 12:01] MED LIST changes: +DIPHENHYDRAMINE25 M1 ORAL; +NITROFURANTOIN100 M2 ORAL; +TRAMADOL HCL50 MG ORAL; +TYLENOL325 MG ORAL
[2019-02-08] MEDS ORDERED: LOSARTAN POTAS100 MG ORAL (12:19)
[2019-02-08 12:28] VITALS: BP 146/86
--- NOTE | 2019-02-08 12:28 | NUR ---
ED Nurse Note: PT CAME IN DUE TO LEFT EYE PAIN AND ITCHYNESS 1 WEEK AGO. GOT WORSE TODAY. DENIES BLURRY VISION. SEEN BY LADAN MATHIS. WILL CONTINUE TO MONITOR
[2019-02-08] MEDS ORDERED: Tetracaine 0.5% Opth 4ml Soln RIGHT EYE ONE (12:30)
[2019-02-08] MEDS ORDERED: Fluorescein Strips RIGHT EYE ONE (12:30)
--- NOTE | 2019-02-08 12:48 | Emergency Room Report ---
History of Present Illness General Chief Complaint: Eye Problems Source: Patient Present Illness HPI 68 YO Female presents to the ED c/o scratching sensation and swelling x 1 week with very mild new onset of 4/10 in severity dull pain/ache in the left upper eye lid. Pt. denies hx of allergies, or notable fb into her eye. Pt denies Contact lens use, reports. corrective lens use though. She Denies: Discharge, Redness, Loss of vision, Floaters, Flashing lights, Diplopia/blurry vision, Increased tearing. Denies CHRISTIANSON. Allergies: Coded Allergies: PEANUT (Verified Allergy, Unknown, 07/26/17) Uncoded Allergies: NUTS (Allergy, Unknown, 07/26/17) Patient History Past Medical History: see triage record Past Surgical History: none Pertinent Family History: none Now: No Immunizations: UTD Reviewed Nursing Documentation: PMH: Agreed; PSxH: Agreed Nursing Documentation-PMH Hx Hypertension: Yes Hx Gastrointestinal Problems: Yes - Hx of ulcer, H.pylori, Hysterectomy 1989. Review of Systems All Other Systems: negative except mentioned in HPI Physical Exam Vital Signs Date Time Temp Pulse Resp B/P (MAP) Pulse Ox O2 Delivery O2 Flow Rate FiO2 02/08/19 12:16 97.9 68 19 96 Room Air 02/08/19 12:28 146/86 Sp02 EP Interpretation: reviewed, normal General Appearance: no apparent distress, alert, GCS 15, non-toxic Head: normocephalic, atraumatic Eyes: left eye lid inflammation; bilateral eye normal inspection, bilateral eye PERRL, bilateral eye EOMI, bilateral eye visual acuity, bilateral eye other - no evidence of FB upon lid flip, 2 hordeoleum's noted with visible superficial purulence. no evidence of corneal abrasion. ENT: hearing grossly normal, normal voice Neck: full range of motion Respiratory: lungs clear, normal breath sounds, speaking full sentences Cardiovascular #1: regular rate, rhythm Gastrointestinal: normal bowel sounds, non tender, soft Rectal: deferred Genitourinary: normal inspection Musculoskeletal: back normal, gait/station normal, normal range of motion, non- tender Neurologic: alert, oriented x3, responsive, motor strength/tone normal, sensory intact, speech normal, grossly normal Psychiatric: judgement/insight normal Skin: normal color, no rash, warm/dry, well hydrated Lymphatic: no adenopathy Medical Decision Making PA Attestation Dr. Herrera is my supervising Physician whom patient management has been discussed with. Diagnostic Impression: Primary Impression: Hordeolum externum left upper eyelid ER Course 68 YO Female presents to the ED c/o scratching sensation and swelling x 1 week with very mild new onset of 4/10 in severity dull pain/ache in the left upper eye lid. Pt. denies hx of allergies, or notable fb into her eye. Pt denies Contact lens use, reports. corrective lens use though. She Denies: Discharge, Redness, Loss of vision, Floaters, Flashing lights, Diplopia/blurry vision, Increased tearing. Denies CHRISTIANSON. Ddx considered but are not limited to: corneal abrasion, acute glaucoma, globe rupture, FB, Corneal Ulcer, conjunctivitis. Iridis Vital signs: are WNL, pt. is afebrile H&PE are most consistent with: hordeolum of the left upper lid. ORDERS: -Tetracaine and Fluorescein Stain of the left eye- no evidence of increased uptake. ED INTERVENTIONS: none at this time. -- D/w pt. warm compresses, gentle massage, use of topical eye antibiotic, and lid scrub. DISCHARGE: At this time pt. is stable for d/c to home. Will provide printed patient care instructions, and any necessary prescriptions. Care plan and follow up instructions have been discussed with the patient prior to discharge. . Last Vital Signs Date Time Temp Pulse Resp B/P (MAP) Pulse Ox O2 Delivery O2 Flow Rate FiO2 02/08/19 12:28 97.9 68 19 146/86 96 Room Air Status: improved Disposition: HOME, SELF-CARE Condition: Stable Scripts Eyelid Cleanser Comb No.7 (Ocusoft Lid Scrub) 50 Ml Foam..ml. 1 APPLIC TP BID, #50 ML Prov: Rosa Hardwick 02/08/19 Erythromycin Base (ERYTHROMYCIN*) 3.5 Gm Oint...g. 1 APPLIC LEFT EYE BID, #3.5 GM 0 Refills Prov: Rosa Hardwick 02/08/19 Patient Instructions: Stye Additional Instructions: Take medications as directed. Follow up with a Home Care Consultant in 3-5 days, even if your symptoms have resolved. --Please review list of primary care clinics, if you do not already have a primary care provider Return sooner to ED if new symptoms occur, or current symptoms become worse. - Please note that this Emergency Department Report was dictated using [employer] loader technology software, occasionally this can lead to erroneous entry secondary to interpretation by the dictation equipment. Rosa Hardwick February 08, 2019 12:48
[2019-02-08] MEDS ORDERED: ERYTHROMYCIN3.5 GM LEFT EYE (12:50)
[2019-02-08] MEDS ORDERED: OCUSOFT LID SCR50 M1 TP (12:50)
[2019-02-08 13:00] VITALS: BP 146/86
--- NOTE | 2019-02-08 13:00 | NUR ---
ER DISCHARGE NOTE: Patient is cleared to be discharged per ERMD, pt is aox4, on room air, with stable vital signs. pt was given dc and prescription instructions, pt was able to verbalize understanding, pt id band removed without complications. pt is able to ambulate with steady gait. pt took all belongings.
== END 2019-02-08 13:00 | disposition home or self-care (01) ==
LOC: EMR 12:50
DX: H00.014 Hordeolum externum left upper eyelid (principal); Z91.018 Allergy to other foods; I10 Essential (primary) hypertension; Z90.710 Acquired absence of both cervix and uterus
CPT/HCPCS: 99282

== ENCOUNTER 2019-06-03 10:32 | Emergency (ER) | payer MEDICARE, MEDICAID ==
[~2019-06-03] VITALS: Ht 167.6 cm; Wt 77.1 kg
[~2019-06-03 10:32] MED LIST changes: +ERYTHROMYCIN3.5 GM LEFT EYE; +LOSARTAN POTAS100 MG ORAL; +OCUSOFT LID SCR50 M1 TP
--- NOTE | 2019-06-03 10:53 | NUR ---
ED Nurse Note: PT WALKED IN TO ER TODAY FROM HOME. AOX4. PT C/O PERSISTENT, NONPRODUCTIVE COUGH X 3 WEEKS. PT DENIES FEVER OR CHILLS. NO SIGNS OF RESPIRATORY DISTRESS, RETRACTIONS, OR ACCESSORY MUSCLE USE NOTED. PT ABLE TO SPEAK IN FULL SENTENCES. RR18, O2SAT 98% ON RA.
[2019-06-03 10:54] VITALS: BP 152/82
[2019-06-03] MEDS ORDERED: ALBUTEROL SULF8.5 GM INH (11:10)
[2019-06-03] MEDS ORDERED: ZITHROMAX250 MG ORAL (11:10)
[2019-06-03 11:13] VITALS: BP 148/80
--- NOTE | 2019-06-03 11:13 | NUR ---
ED Nurse Note: PT SITTING PEACEFULLY IN BED IN NAD. AOX4. PRESCRIPTIONS AND DISCHARGE PAPERWORK EXPLAINED TO PT. PT VERBALIZES UNDERSTANDING AND ALL QUESTIONS ANSWERED. PRESCRIPTIONS AND DISCHARGE PAPERWORK GIVEN TO PT AND ID WRISTBAND REMOVED. PT WALKED OUT OF ER WITH STEADY GAIT AND ALL BELONGINGS.
--- NOTE | 2019-06-03 17:39 | Emergency Room Report ---
History of Present Illness General Chief Complaint: Upper Respiratory Illness Source: Patient Present Illness HPI Patient presents emergency department with complaint of cough congestion patient states that she has had symptoms for about 3 weeks. She denies any fever nausea vomiting diarrhea chills. The cough is worse at night. She states that she sometimes feels a little short of breath. Denies any chest pain. Denies any leg pain leg swelling. She states that she has had this before. States that her symptoms usually improved with antibiotics symptoms noted to be moderate. Patient states that she will be traveling and would like treatment right now prior to travel. No other modifying factors. No other associated signs and symptoms. No other complaints were noted. Allergies: Coded Allergies: PEANUT (Verified Allergy, Unknown, 07/26/17) Uncoded Allergies: NUTS (Allergy, Unknown, 07/26/17) Patient History Past Medical History: none Past Surgical History: none Pertinent Family History: none Social History: Denies: smoking, alcohol use, drug use Last Menstrual Period: na Reviewed Nursing Documentation: PMH: Agreed; PSxH: Agreed Nursing Documentation-PMH Past Medical History: No History, Except For Hx Hypertension: Yes Hx Gastrointestinal Problems: Yes - Hx of ulcer, H.pylori, Hysterectomy 1989. Review of Systems All Other Systems: negative except mentioned in HPI Physical Exam Vital Signs Date Time Temp Pulse Resp B/P (MAP) Pulse Ox O2 Delivery O2 Flow Rate FiO2 06/03/19 10:44 98.1 74 20 160/86 (110) 95 Room Air Sp02 EP Interpretation: reviewed, normal General Appearance: normal inspection, well appearing, no apparent distress, alert Head: atraumatic Eyes: bilateral eye normal inspection ENT: normal ENT inspection, hearing grossly normal, normal voice Neck: normal inspection, full range of motion, supple, no bony tend Respiratory: normal inspection, lungs clear, normal breath sounds, no respiratory distress, no retraction, no wheezing Cardiovascular #1: regular rate, rhythm, no edema Gastrointestinal: normal inspection, normal bowel sounds, non tender, soft, no guarding, no hernia Genitourinary: no CVA tenderness Musculoskeletal: normal inspection, back normal, normal range of motion Neurologic: normal inspection, alert, responsive, speech normal Psychiatric: normal inspection, judgement/insight normal, mood/affect normal Medical Decision Making Diagnostic Impression: Primary Impression: Cough ER Course Patient presents to the emergency department today complaining of cough and congestion. Differential diagnoses include pneumonia, bronchitis, sinusitis, pharyngitis, allergies, viral syndrome, bronchospasms just to name a few. Given patient's presentations. I feel the patient would benefit from antibiotics as she has had prolonged symptoms for some time. This could be bronchitis or sinusitis that is untreated. Patient was given a prescription for Zithromax and albuterol. Patient is advised to follow up with primary doctor in 2-3 days and return the emergency room for any worsening symptoms and as needed. Last Vital Signs Date Time Temp Pulse Resp B/P (MAP) Pulse Ox O2 Delivery O2 Flow Rate FiO2 06/03/19 11:13 98.3 76 17 148/80 99 Room Air Status: unchanged Disposition: HOME, SELF-CARE Condition: Stable Scripts Azithromycin* (ZITHROMAX*) 250 Mg Tablet 250 MG ORAL DAILY, #6 TAB 0 Refills Take two tables once daily for 1 day, then one tablet once daily for 4 days. Prov: Wade Artis MD 06/03/19 Albuterol Sulfate* (ALBUTEROL SULFATE MDI*) 8.5 Gm Hfa.aer.ad 2 PUFF INH Q4H PRN for cough/wheezing, #1 EA 0 Refills Prov: Wade Artis MD 06/03/19 Referrals: NOT CHOSEN IPA/,REFERRING Patient Instructions: Upper Respiratory Infection, Adult, Acute Bronchitis, [id number] Wade Artis MD Jun 03, 2019 17:38
== END 2019-06-03 11:24 | disposition home or self-care (01) ==
LOC: EMR 11:24
DX: R05 Cough (principal); I10 Essential (primary) hypertension; Z90.710 Acquired absence of both cervix and uterus; Z87.11 Personal history of peptic ulcer disease; Z91.018 Allergy to other foods; Z91.010 Allergy to peanuts
CPT/HCPCS: 99282

== ENCOUNTER 2020-11-10 09:17 | Emergency (ER) | payer MEDICARE, MEDICAID ==
[~2020-11-10] VITALS: Ht 167.6 cm; Wt 79.4 kg
[~2020-11-10 09:17] MED LIST changes: +AVAPRO75 MG ORAL; +CYCLOBENZAPRINE10 MG ORAL; +DICYCLOMINE HCL10 MG ORAL; +ZITHROMAX250 MG ORAL; +ZOFRAN4 M1 ORAL
--- NOTE | 2020-11-10 09:59 | Emergency Room Report ---
History of Present Illness General Chief Complaint: Abdominal Pain Source: Patient Present Illness HPI Patient presents with 5 days of stomach discomfort. She says that she is not been moving her bowels well feels distended and feels some pressure in the left upper quadrant. Her stools have been somewhat loose and she last moved her bowels yesterday. Was in a large amount. She has nausea has been intermittent. She has not vomited. The stool was normal in color without any blood. She denies dysuria. She denies any pain at this time. She has been treating herself with cabbage, potatoes and tonic water. History of gastritis and healing factor pylori which was treated. In the past she is gotten better with antibiotics. She also has a history of bronchitis. She is not coughing denies any fevers. Patient denies exposure to Covid positive contacts. No fevers, chills, sore throat, chest pain, palpitations, shortness of breath, joint pain, rashes, depression, anxiety, visual changes, dizziness, headache. 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 Review of Systems All Other Systems: negative except mentioned in HPI Physical Exam Vital Signs Date Time Temp Pulse Resp B/P (MAP) Pulse Ox O2 Delivery O2 Flow Rate FiO2 11/10/20 09:30 98.2 74 15 132/89 (103) 97 Room Air Sp02 EP Interpretation: reviewed, normal General Appearance: well appearing, no apparent distress, GCS 15 Head: normocephalic Eyes: bilateral eye normal inspection, bilateral eye PERRL, bilateral eye EOMI ENT: moist mucus membranes Neck: supple Respiratory: lungs clear, normal breath sounds Cardiovascular #1: regular rate, rhythm Cardiovascular #2: 2+ radial (R) Gastrointestinal: normal inspection, normal bowel sounds, non tender, no mass, non-distended Genitourinary: no CVA tenderness Musculoskeletal: back normal, normal range of motion, gait/station normal Neurologic: alert, oriented x3, grossly normal Psychiatric: mood/affect normal Skin: no rash, normal inspection, warm/dry Medical Decision Making Diagnostic Impression: Primary Impression: Abdominal discomfort ER Course Patient presents with left upper quadrant fullness with some change in bowel habits and nausea. Differential includes diverticulitis, pancreatitis, GERD, irritable bowel syndrome amongst others. Need to exclude urinary tract infection. Analysis with x-ray of the abdomen and labs. EKG obtained to exclude atypical cardiac problem. Patient treated with IV hydration, Pepcid and Mylanta. EKG without injury. Abdomen film with increased stool load and some gas, labs unremarkable. Patient improved with treatment. Discussion of results with patient. Discussed treatment plan with patient. Patient stable for outpatient observation and treatment. Laboratory Tests Test 11/10/20 09:58 White Blood Count 6.1 K/UL (4.8-10.8) Red Blood Count 4.35 M/UL (4.20-5.40) Hemoglobin 12.6 G/DL (12.0-16.0) Hematocrit 39.9 % (37.0-47.0) Mean Corpuscular Volume 92 FL (80-99) Mean Corpuscular Hemoglobin 29.0 PG (27.0-31.0) Mean Corpuscular Hemoglobin Concent 31.6 G/DL (32.0-36.0) L Red Cell Distribution Width 13.7 % (11.6-14.8) Platelet Count 239 K/UL (150-450) Mean Platelet Volume 6.0 FL (6.5-10.1) L Neutrophils (%) (Auto) 49.0 % (45.0-75.0) Lymphocytes (%) (Auto) 41.7 % (20.0-45.0) Monocytes (%) (Auto) 7.3 % (1.0-10.0) Eosinophils (%) (Auto) 0.8 % (0.0-3.0) Basophils (%) (Auto) 1.3 % (0.0-2.0) Prothrombin Time 11.8 SEC (9.30-11.50) H Prothrombin Time INR 1.1 (0.9-1.1) Activated Partial Thromboplast Time 28 SEC (23-33) Urine Color Pale yellow Urine Appearance Clear Urine pH 7 (4.5-8.0) Urine Specific [place] 1.010 (1.005-1.035) Urine Protein Negative (NEGATIVE) Urine Glucose (UA) Negative (NEGATIVE) Urine Ketones Negative (NEGATIVE) Urine Blood Negative (NEGATIVE) Urine Nitrite Negative (NEGATIVE) Urine Bilirubin Negative (NEGATIVE) Urine Urobilinogen Normal MG/DL (0.0-1.0) Urine Leukocyte Esterase 1+ (NEGATIVE) H Urine RBC 0-2 /HPF (0 - 2) Urine WBC 0-2 /HPF (0 - 2) Urine Squamous Epithelial Cells Occasional /LPF Urine Bacteria Occasional /HPF (NONE) Sodium Level 145 MMOL/L (136-145) Potassium Level 4.2 MMOL/L (3.5-5.1) Chloride Level 108 MMOL/L (98-107) H Carbon Dioxide Level 33 MMOL/L (21-32) H Anion Gap 4 mmol/L (5-15) L Blood Urea Nitrogen 11 mg/dL (7-18) Creatinine 0.9 MG/DL (0.55-1.30) Estimated Glomerular Filtration Rate > 60 mL/min (>60) Glucose Level 85 MG/DL (74-106) Calcium Level 9.4 MG/DL (8.5-10.1) Total Bilirubin 0.6 MG/DL (0.2-1.0) Aspartate Amino Transferase (AST) 25 U/L (15-37) Alanine Aminotransferase (ALT) 20 U/L (12-78) Alkaline Phosphatase 104 U/L (46-116) Troponin I 0.032 ng/mL (0.000-0.056) Total Protein 7.4 G/DL (6.4-8.2) Albumin 3.7 G/DL (3.4-5.0) Globulin 3.7 g/dL Albumin/Globulin Ratio 1.0 (1.0-2.7) Lipase 109 U/L (73-393) EKG Diagnostic Results Rate: normal Rhythm: NSR ST Segments: no acute changes - LVH and P pulmonale Rhythm Strip Diag. Results EP Interpretation: yes Rhythm: NSR, no PVC's, no ectopy Other X-Ray Diagnostic Results Other X-Ray Diagnostic Results : X-Ray ordered: Abdomen # of Views/Limited Vs Complete: 2 View Indication: Other Interpretation: nonspecific bowel gas, no sbo, other - Increase stool load Impression: No acute disease Electronically Signed by: Electronically signed by Lm Herrera MD Last Vital Signs Date Time Temp Pulse Resp B/P (MAP) Pulse Ox O2 Delivery O2 Flow Rate FiO2 11/10/20 10:17 82 16 166/85 100 Room Air 11/10/20 10:17 100 11/10/20 09:30 98.2 Status: improved Disposition: HOME, SELF-CARE Condition: Improved Scripts Mag Hydrox/Aluminum Hyd/Simeth (Mylanta Maximum Strength Liq) 355 Ml Oral.susp 30 ML PO Q6HR PRN for discomfort or gas, #240 ML Prov: Lm Herrera MD 11/10/20 Famotidine* (Pepcid 20mg tablet*) 20 Mg Tablet 20 MG ORAL DAILY, #30 TAB 0 Refills Prov: Lm Herrera MD 11/10/20 Lm Herrera MD Nov 10, 2020 09:59
[2020-11-10] MEDS ORDERED: Mylanta II UD 30ml ORAL ONE (10:00)
[2020-11-10 10:11] LABS: APPEARANCE,URINE CLEAR; BILIRUBIN, URINE NEGATIVE (NEGATIVE); GLUCOSE, URINE (UA) NEGATIVE (NEGATIVE); KETONES,URINE NEGATIVE (NEGATIVE); LEUKOCYTE ESTERASE ,URINE 1+ (NEGATIVE); NITRITE,URINE NEGATIVE (NEGATIVE); PH,URINE 7 (4.5-8.0); PROTEIN,URINE NEGATIVE (NEGATIVE); UROBILINOGEN,URINE NORMAL MG/DL (0.0-1.0)
--- NOTE | 2020-11-10 10:13 | NUR ---
Patient presents to the ER with stomach discomfort x 5 days. She reports that she deels distended with left upper quad pressure. She has intermittent nausea with no vomitus. Denies pain at present. [id number]
[2020-11-10 10:14] LABS: BASOPHILS % (AUTO) 1.3 % (0.0-2.0); EOSINOPHILS % (AUTO) 0.8 % (0.0-3.0); HEMATOCRIT 39.9 % (37.0-47.0); HEMOGLOBIN 12.6 G/DL (12.0-16.0); LYMPHOCYTES % (AUTO) 41.7 % (20.0-45.0); MEAN CORPUSCULAR VOLUME 92 FL (80-99); MONOCYTES % (AUTO) 7.3 % (1.0-10.0); PLATELET COUNT 239 K/UL (150-450); RED BLOOD COUNT 4.35 M/UL (4.20-5.40); RED CELL DISTRIBUTION WIDTH 13.7 % (11.6-14.8); WHITE BLOOD COUNT 6.1 K/UL (4.8-10.8)
[2020-11-10 10:17] VITALS: BP 166/85
[2020-11-10 10:23] LABS: COLOR,URINE PALE YELLOW
[2020-11-10 10:28] LABS: ANION GAP 4 mmol/L (5-15); BLOOD UREA NITROGEN 11 mg/dL (7-18); CALCIUM 9.4 MG/DL (8.5-10.1); CARBON DIOXIDE 33 MMOL/L (21-32); CHLORIDE 108 MMOL/L (98-107); CREATININE 0.9 MG/DL (0.55-1.30); POTASSIUM 4.2 MMOL/L (3.5-5.1); SODIUM 145 MMOL/L (136-145)
[2020-11-10 10:30] LABS: INR 1.1 (0.9-1.1)
[2020-11-10 10:32] LABS: ALANINE AMINOTRANSFERASE 20 U/L (12-78); ALBUMIN 3.7 G/DL (3.4-5.0); ALKALINE PHOSPHATASE 104 U/L (46-116); ASPARTATE AMINO TRANSFERASE 25 U/L (15-37); BILIRUBIN,TOTAL 0.6 MG/DL (0.2-1.0)
[2020-11-10] MEDS ORDERED: MYLANTA MAXIMU355 ML PO (11:48)
[2020-11-10] MEDS ORDERED: FAMOTIDINE20 MG ORAL (11:48)
--- NOTE | 2020-11-10 16:55 | Diagnostic Imaging Report ---
Indication: Abdominal pain Technique: Supine view of the abdomen Comparison: 07/04/2019 Findings: Unremarkable bowel gas pattern. No masses or unusual calcifications Impression: Negative
== END 2020-11-10 11:55 | disposition home or self-care (01) ==
LOC: EMR 10:08
DX: R10.12 Left upper quadrant pain (principal); I10 Essential (primary) hypertension; Z87.11 Personal history of peptic ulcer disease; Z90.710 Acquired absence of both cervix and uterus; Z91.010 Allergy to peanuts; Z91.018 Allergy to other foods
CPT/HCPCS: 36415; 74018; 80053; 81003; 83690; 84484; 85025; 85610; 85730; 93005; 96361; 96374; 99284; J7030; S0028